=== PATIENT | female | born 1990 | race African-American/Black ===

== ENCOUNTER 2024-12-17 21:02 | Emergency (ER) | payer OTHER ==
[~2024-12-17] VITALS: Ht 162.6 cm; Wt 63.0 kg
[2024-12-17 21:46] VITALS: BP 119/75; TEMP 98.1; O2SAT 98
[2024-12-17] MEDS ORDERED: FLUT16SP16 BNOSTRILS (23:15)
== END 2024-12-17 23:30 | disposition home or self-care (01) ==
LOC: ER 21:08
DX: T59.891A Toxic effect of other specified gases, fumes and vapors, accidental (unintentional), initial encounter (principal); J32.9 Chronic sinusitis, unspecified; Z88.0 Allergy status to penicillin; Z88.6 Allergy status to analgesic agent; Y92.89 Other specified places as the place of occurrence of the external cause
CPT/HCPCS: 71045-TC

== ENCOUNTER 2025-08-19 11:13 | Emergency (ER) | payer BC, OTHER ==
[~2025-08-19] VITALS: Ht 160 cm; Wt 68.0 kg
[~2025-08-19 11:13] MED LIST: FLUT16SP16 BNOSTRILS
[2025-08-19 11:22] VITALS: BP 111/62; TEMP 97.9; O2SAT 98
[2025-08-19] MEDS ORDERED: ALBU8.5H8 INH (11:47)
== END 2025-08-19 12:57 | disposition home or self-care (01) ==
LOC: ER 11:24
DX: F41.9 Anxiety disorder, unspecified (principal); J45.909 Unspecified asthma, uncomplicated; Z88.0 Allergy status to penicillin; Z88.6 Allergy status to analgesic agent